=== PATIENT | female | born 1980 | race Two or more races ===

== ENCOUNTER 2023-04-30 11:12 | Inpatient (IN) | payer OTHER ==
[~2023-04-30] VITALS: Ht 157.5 cm; Wt 94.8 kg
[2023-04-30 14:32] LABS: ANION GAP 8 (10.0-20.0); BLOOD UREA NITROGEN 11 mg/dL (7-18); BUN CREA RATIO 18 (7.0-25.0); CALCIUM 8.4 mg/dL (8.5-10.1); CARBON DIOXIDE 28 mEq/L (21-32); CHLORIDE 106 mmol/L (98-107); CREATININE SERUM 0.61 mg/dL (0.55-1.02); GFR 106.55; GLUCOSE FASTING 87 mg/dL (65-100); LIPASE 28 U/L (13-75); OSMOLALITY SERUM 274 MOSM/KG (275-295); POTASSIUM 3.85 mEq/L (3.5-5.1); SODIUM 138 mmol/L (136-145)
[2023-04-30 14:39] LABS: HCG QUANTITATIVE < 1 mUI/mL (1-3)
[2023-04-30 15:06] LABS: HEMOGLOBIN 12.2 g/dL (12.0-15.00); MEAN CELL VOLUME 78.9 fL (80.00-100.00)
[2023-04-30 15:08] LABS: HEMATOCRIT 38.9 % (36.0-45.00); MEAN CORPUSCULAR HEMOGLOBIN 24.8 pg (27.00-32.0); MEAN CORPUSCULAR HGB CONC 31.5 g/dl (32.0-36.0); PLATELET COUNT 326 K/uL (150-450); RED BLOOD COUNT 4.93 M/uL (4.00-6.00); RED CELL DISTRIBUTION WIDTH 16.2 % (11.5-14.5)
[2023-04-30 15:34] LABS: PH,URINE 5.5 (5.0-8.0); URINE APPEARANCE Clear; URINE BILIRRUBIN Negative (NEGATIVE); URINE BLOOD Negative; URINE COLOR Yellow; URINE GLUCOSE Negative (NEGATIVE); URINE LEUKOCYTE Negative; URINE NITRATE Negative; URINE PROTEIN Negative (NEGATIVE); URINE UROBILINOGEN 0.2 E.U./dl
[2023-04-30 15:37] LABS: URINE BACTERIA 47.8 uL (0.0-1933); URINE EPITHELIAL CELLS 7.8 uL (0.0-38.8); URINE WBC 2.9 uL (0.0-23.2)
[2023-05-01 07:41] LABS: ALBUMIN 3.8 gm/dL (3.4-5.0); BILIRUBIN TOTAL 0.61 mg/dL (0.3-1.2); BILIRUBIN,CONJUGATED 0.19 mg/dL (0.0-0.2); BILIRUBIN,UNCONJUGATED 0.42 mg/dL (0.0-0.6); CALCIUM 8.7 mg/dL (8.5-10.1); CHOL HDL RATIO 2.3 (0-5.0); CREATININE SERUM 0.62 mg/dL (0.55-1.02); GFR 104.57; POTASSIUM 3.73 mEq/L (3.5-5.1); TOTAL PROTEIN 7.8 gm/dL (6.4-8.2)
[2023-05-01 08:07] LABS: C-REACTIVE PROTEIN 6.68 MG/DL (0.00-0.29)
[2023-05-01 08:17] LABS: URINE APPEARANCE Clear; URINE BILIRRUBIN Negative (NEGATIVE); URINE BLOOD Negative; URINE COLOR Yellow; URINE GLUCOSE Negative (NEGATIVE); URINE LEUKOCYTE Negative; URINE NITRATE Negative; URINE PROTEIN Negative (NEGATIVE)
[2023-05-01 08:20] LABS: URINE BACTERIA 313.6 uL (0.0-1933); URINE EPITHELIAL CELLS 13.4 uL (0.0-38.8)
[2023-05-01 08:21] LABS: HEMATOCRIT 39.1 % (36.0-45.00); HEMOGLOBIN 12.8 g/dL (12.0-15.00); MEAN CELL VOLUME 79.3 fL (80.00-100.00); MEAN CORPUSCULAR HEMOGLOBIN 25.9 pg (27.00-32.0); MEAN CORPUSCULAR HGB CONC 32.7 g/dl (32.0-36.0); PLATELET COUNT 313 K/uL (150-450); RED BLOOD COUNT 4.93 M/uL (4.00-6.00); RED CELL DISTRIBUTION WIDTH 15.8 % (11.5-14.5)
[2023-05-01 08:58] LABS: ERYTHROCYTE SEDIMENTATION RATE 63 mm/hr
[2023-05-01 09:11] LABS: INR 1.08; PARTIAL THROMBOPLASTIN TIME 32.2 SECONDS (22.0-34.0); PROTHROMBIN TIME 11.3 SECONDS (9.0-11.5)
== END 2023-05-02 21:14 | disposition home or self-care (01) | DRG 399 ==
LOC: ER 11:12 → SEC-K 23:34 → SURH 23:34 → SURG 05-02 15:37 → SURH 05-02 18:13
PROVIDERS: Emergency Medicine; General Practice; Specialist; ADMIT Specialist; ATTEND Specialist
PROC: 0DTJ4ZZ Resection of Appendix, Percutaneous Endoscopic Approach (ICD-10-PCS; principal; 2023-05-01 07:00)
DX: K35.80 Unspecified acute appendicitis (principal); D72.829 Elevated white blood cell count, unspecified